=== PATIENT | male | born 1945 | race Caucasian/White ===

== ENCOUNTER → 2019-07-20 | Outpatient (CLI) | payer MEDICARE ==
--- NOTE | 2019-07-20 15:44 | Diagnostic Imaging Report ---
HISTORY: Fall, left ankle pain. TECHNIQUE: Three views of the left ankle. COMPARISON: None. FINDINGS: There is an oblique Prieto type B fracture of the distal left fibula without significant displacement. There appears to be an old well-corticated ossification adjacent to the medial malleolus which may be from remote trauma. There are posterior and plantar calcaneal enthesophytes. There is an os trigonum. There is a small tibiotalar joint effusion. The ankle mortise appears symmetric. There is moderate soft tissue swelling about the left ankle. IMPRESSION: Nondisplaced lateral malleolus fracture of the left ankle. Dictated by: Dictated on workstation # [id number]
== END ==
LOC: RAD FS 15:18
PROVIDERS: ATTEND Nurse Practitioner
DX: S82.65XA Nondisplaced fracture of lateral malleolus of left fibula, initial encounter for closed fracture (principal); W19.XXXA Unspecified fall, initial encounter
CPT/HCPCS: 73610

== ENCOUNTER → 2019-08-03 | Outpatient (CLI) | payer MEDICARE ==
--- NOTE | 2019-08-03 12:39 | Diagnostic Imaging Report ---
HISTORY: Followup fracture. TECHNIQUE: 3 views of the left ankle. COMPARISON: 07/20/2019 FINDINGS: Redemonstrated is a Prieto type B oblique fracture of the distal left fibula, with minimal lateral displacement. Alignment appears stable. There is irregularity of the medial malleolus which may be from remote trauma. An os trigonum is noted. There is calcaneal enthesopathy. No significant tibiotalar joint effusion is seen. Soft tissue swelling has decreased since the prior study. IMPRESSION: 1. Distal left fibula fracture in stable alignment. Dictated by: Dictated on workstation # [id number]
== END ==
LOC: RAD FS 10:47
PROVIDERS: ATTEND Nurse Practitioner
DX: S82.832D Other fracture of upper and lower end of left fibula, subsequent encounter for closed fracture with routine healing (principal)
CPT/HCPCS: 73610

== ENCOUNTER → 2019-08-18 | Outpatient (CLI) | payer MEDICARE ==
--- NOTE | 2019-08-18 14:12 | Diagnostic Imaging Report ---
INDICATION: Left ankle fracture follow-up 3 views of the left ankle show a healing oblique fracture of the lateral malleolus. Bones are stable in alignment. IMPRESSION: Healing oblique distal fibula fracture in stable alignment compared to 08/03/2019. Dictated by: Dictated on workstation # [id number]
== END ==
LOC: RAD FS 13:36
PROVIDERS: ATTEND Nurse Practitioner
DX: S82.832D Other fracture of upper and lower end of left fibula, subsequent encounter for closed fracture with routine healing (principal)
CPT/HCPCS: 73610